=== PATIENT | female | born 1950 | race Hispanic/Latino ===

== ENCOUNTER 2018-05-08 10:31 | Day surgery (SDC) | payer MEDICARE, OTHER ==
--- NOTE | 2018-05-04 16:42 | Anesthesia Consultation ---
Anesthesia Consult and Med Hx Date of service: 05/04/18 (for procedure scheduled 05/08/18) - Airway Anesthetic Teeth Evaluation: Dentures ROM Head & Neck: Adequate Mental/Hyoid Distance: Adequate Mallampati Class: Class III Intubation Access Assessment: Probably Good - Pulmonary Exam CTA: Yes - Cardiac Exam Cardiac Exam: RRR - Pre-Operative Health Status ASA Pre-Surgery Classification: ASA3 Proposed Anesthetic Plan: General - Pulmonary Hx Smoking: Yes (1/2 PPD X 40 YRS (recently down to 04/24 PPD)) Hx Asthma: No Hx Respiratory Symptoms: Yes (occasional nonproductive cough) SOB: No Home Oxygen Therapy: No Hx Sleep Apnea: No (CLARISSE PRE SCREEN LOW RISK.) - Cardiovascular System Hx Hypertension: Yes Hx Heart Attack/AMI: Yes (2000 s/p CABG. Stable cardiac function. No cardiology visits in many yrs.) Hx Angina: No Hx Cardia Arrhythmia: No Hx Pacemaker: No Hx Internal Defibrillator: No Hx Peripheral Vascular Disease: Yes (LE edema; uses lasix 2-3x/week) - Central Nervous System Hx Seizures: No CVA: No Hx Back Pain: Yes (CHRONIC WITH LEFT HIP/LEG PAIN AND WEAKNESS) Hx Psychiatric Problems: Yes (depression) - Gastrointestinal Hx Gastroesophageal Reflux Disease: No - Endocrine Hx Renal Disease: No Hx Liver Disease: No Hx Non-Insulin Dependent Diabetes: Yes Hx Thyroid Disease: No - Other Systems Hx Obesity: Yes - Additional Comments Anesthesia Medical History Comments: Hx intraop hypotension with nasuea/vomiting during recent SCS placement attempt. Denies hx heart failure, orthopnea, KUMAR, or angina. Instructed to hold lisinopril, lasix, and metformin DOS.
[~2018-05-08 10:31] MED LIST: ANCEF/STERILE WATER 2 GM/20 ML IV NR; LACTATED RINGERS 1,000 ML IV SCH; NEURONTIN PO NR; PROVENTIL IH NR; VERSED IV NR
[2018-05-08] MEDS ORDERED: XYLOCAINE 1%/ EPI 1:100,000 INFILTRATI ONE (11:57)
[2018-05-08] MEDS ORDERED: MARCAINE 0.5% INFILTRATI ONE (11:57)
[2018-05-08] MEDS ORDERED: MARCAINE-EPI 0.5%-1:200,000 INFILTRATI ONE ×2 (11:57→13:30)
[2018-05-08] MEDS ORDERED: HYDROGEN PEROXIDE ONE (11:57)
[2018-05-08] MEDS ORDERED: DILAUDID ONE (12:29)
[2018-05-08] MEDS ORDERED: DIPRIVAN 10 MG/ML IV ONE (12:30)
--- NOTE | 2018-05-08 13:29 | Discharge Summary ---
Short Stay Discharge Plan Activity: other (d/c when stable. keep wd vac in place. home health arrangements already set-up. ET nurse to change wd vac this . RTO Fri.) Diet: other (ADA 1800 shraddha diet) Wound: per wound nurse instructions Special Instructions: home health RN Additional Instructions: aleve I po q 6-8 hrs for breakthrough pain Follow up with: MISSY ALFARO MD [Staff Physician] - 7 Days
[2018-05-08] MEDS ORDERED: NACL 0.9% IR ONE (13:30)
[2018-05-08] MEDS ORDERED: HYDROGEN PEROXIDE TP ONE (13:30)
[2018-05-08] MEDS ORDERED: XYLOCAINE MPF 2% ONE (13:36)
[2018-05-08] MEDS ORDERED: ROBINUL ONE (13:36)
[2018-05-08] MEDS ORDERED: BLOXIVERZ ONE (13:36)
[2018-05-08] MEDS ORDERED: ZOFRAN ONE (13:36)
[2018-05-08] MEDS ORDERED: ZEMURON IV ONE (13:36)
--- NOTE | 2018-05-08 13:49 | Operative Report ---
PREOPERATIVE DIAGNOSIS: Rule out infected hematoma. POSTOPERATIVE DIAGNOSIS: Rule out infected hematoma. PROCEDURE: Exploration and evacuation of infected hematoma low mid back. SURGEON: Reji Olson MD ANESTHESIA: General. ESTIMATED BLOOD LOSS: Minimal. COMPLICATIONS: No complications. PROCEDURE IN DETAIL: The patient was taken to the operating room and placed in prone position, prepped and draped in the usual sterile fashion. The tender nodule was easily visible in the lower mid back. A 15-blade was used to incise skin and subcutaneous. Stefan retractors and subsequently [employer] were used to retract the skin and subcutaneous. Needle tip electrocautery was used to dissect down to the area. Infected hematoma was noted surrounded by seroma. Aerobic and anaerobic cultures were taken of the serous fluid. Sharp and blunt dissection as well as electrocautery was used to remove all the infected tissue including the hematoma. Tissue was sent fresh to pathology for aerobic and anaerobic cultures as well as permanent pathology. The cavity was then irrigated copiously with a 50% Betadine peroxide solution. The area was then dried and checked for hemostasis. Noted to be dry. All remaining tissues were clean with no other evidence of infection. A wound VAC was then placed as per ET nurse. The area was noted to be clean with no other infected tissue noted and 0.5% Marcaine was infiltrated over the skin and subcutaneous space for postoperative pain relief. The patient tolerated the procedure well and left OR in stable condition. JOB# [id number] EULALIA/KYA
[2018-05-08] MEDS ORDERED: ZOFRAN IV PRN (14:31)
[2018-05-08] MEDS ORDERED: DILAUDID IV PRN (14:31)
[2018-05-08] MEDS ORDERED: NORCO 5/325 PO ONE (14:33)
[2018-05-08 16:51] VITALS: BP 141/65
--- NOTE | 2018-05-08 18:49 | Post Anesthesia Evaluation ---
- Post Anesthesia Evaluation Patient Participated: Yes Airway Patent: Yes Stable Respiratory Function: Yes Nausea/Vomiting: No Temp > 96.8F: Yes Pain Manageable: Yes Adequeate Hydration: Yes Anesthesia Complications: No
== END 2018-05-08 16:10 | disposition home or self-care (01) ==
LOC: OR 10:31
PROVIDERS: ATTEND Surgery
DX: M79.81 Nontraumatic hematoma of soft tissue (principal); L98.429 Non-pressure chronic ulcer of back with unspecified severity; F32.9 Major depressive disorder, single episode, unspecified; E11.51 Type 2 diabetes mellitus with diabetic peripheral angiopathy without gangrene; E78.00 Pure hypercholesterolemia, unspecified; I10 Essential (primary) hypertension; K21.9 Gastro-esophageal reflux disease without esophagitis; I25.2 Old myocardial infarction; F17.200 Nicotine dependence, unspecified, uncomplicated; E66.9 Obesity, unspecified; Z68.31 Body mass index [BMI] 31.0-31.9, adult; Z79.899 Other long term (current) drug therapy; Z79.84 Long term (current) use of oral hypoglycemic drugs; Z79.82 Long term (current) use of aspirin; Z95.0 Presence of cardiac pacemaker; Z90.710 Acquired absence of both cervix and uterus; Z90.49 Acquired absence of other specified parts of digestive tract; Z98.890 Other specified postprocedural states
CPT/HCPCS: 10140; 82962; 87075; 87116; 88305; J0690; J1170; J2405; J2704; J2710; J7120; 88304